=== PATIENT | male | born 1975 | race Caucasian/White ===

== ENCOUNTER 2017-10-15 10:42 | Emergency (ER) | payer BC, OTHER ==
[~2017-10-15] VITALS: Ht 175.3 cm; Wt 87.0 kg
[2017-10-15 11:00] VITALS: TEMP 36.7; Ht 175.3 cm; Wt 87.0 kg
[2017-10-15] MEDS ORDERED: MoRPHine SULFATE 10 MG/ML CARP/VIAL IM STA (11:24)
--- NOTE | 2017-10-15 11:48 | DIAGNOSTIC IMAGING REPORT ---
LUMBAR SPINE 5 VIEWS CLINICAL HISTORY: Low back pain of several days' duration. FINDINGS: 5 views of the lumbar spine are obtained. No prior studies are available for comparison at the time of dictation. The skeletal structures are well mineralized. There is no radiographic evidence of fracture or malalignment. Vertebral body height and alignment are maintained. The transverse and spinous processes are intact. Tiny anterior osteophytes are seen throughout. There is no evidence of spondylolysis. The intervertebral disc spaces are well-maintained. The visualized bony pelvis appears intact. There is a nonobstructed abdominal bowel gas pattern. IMPRESSION: No acute bony abnormality is seen involving the lumbosacral spine. Electronically signed by: Bubba De Souza M.D. 10/15/2017 11:46 AM Dictated Date/Time: 10/15/2017 11:46 AM
--- NOTE | 2017-10-15 11:54 | EMERGENCY ROOM VISIT NOTE ---
History First contact with patient: 11:13 Chief Complaint: BACK PAIN Stated Complaint: HURT BACK & HIP History of Present Illness The patient is a 42 year old male who presents to the Emergency Room with complaints of "her hip and back". The patient states that he was cutting firewood Sunday, and developed low back pain that yesterday progressed. He then states that it is sharp, and he could not get out of bed this morning secondary to the pain. He has tried heat, ibuprofen, Advil, and Aleve without relief. He denies any incontinence, numbness or tingling in genital region. He does have a history of umbilical hernia. There is no cauda equina symptoms. Review of Systems A complete 6-point Review of Systems was discussed with the patient, with pertinent positives and negatives listed in the History of Present Illness. All remaining Review of Systems questions can be considered negative unless otherwise specified. Past Medical/Surgical History No pertinent. Family History No pertinent. Social History Smoking Status: Never Smoker Patient lives locally. Current/Historical Medications Scheduled Cyclobenzaprine Hcl (Flexeril), 10 MG PO TID Prednisone (Prednisone), 0 PO DAILY Scheduled PRN Oxycodone Ir (Roxicodone Ir), 1-2 TAB PO Q4H PRN for Pain Miscellaneous Medications Acetaminophen Tab (Tylenol), 325 MG PO Ibuprofen (Advil), 200 MG PO Physical Exam Vital Signs Date Time Temp Pulse Resp B/P (MAP) Pulse Ox O2 Delivery O2 Flow Rate FiO2 10/15/17 13:24 64 18 126/85 95 10/15/17 13:00 69 18 96 Room Air 10/15/17 11:00 36.7 60 20 116/67 95 Room Air Physical Exam VITAL SIGNS - Vital signs and nursing notes were reviewed. GENERAL - []-year-old [] appearing [] stated age who is in no acute distress. Communicates well with provider and answers questions appropriately. SKIN - Without rashes. HEAD - NC/AT. EYES - PERRL with EOMI bilaterally. Sclera anicteric. Palpebral conjunctiva pink and moist with no injection noted. EARS - No deformities of external structures noted on gross examination bilaterally. No pain elicited with palpation of the tragus bilaterally. External auditory canals without discharge or otorrhea. Tympanic membranes pearly ashley without retraction or bulging. No fluid or purulent material visualized behind the TM. Handle of malleus, umbo, cone of light, pars tensa/ flaccid all easily visualized. NOSE - Midline and without cyanosis. No epistaxis or purulent drainage noted. Septum midline without deviation or septal hematoma noted. LUNGS - Chest wall symmetric without accessory muscle use, intercostals retractions, or central cyanosis. Normal vesicular breath sounds CTA B/L. No wheezes, rales, or rhonchi appreciated. CARDIAC - RRR with S1/S2. No murmur, rubs, or gallops appreciated. ABDOMEN - Abdominal contour normal without pulsations or visible masses. BS normoactive all four quadrants. No tenderness, palpable masses, hepatosplenomegaly, or ascites noted. MUSCULOSKEKTAL: Tenderness overlying L paraspinal musculature. EXTREMITIES - No clubbing or peripheral cyanosis. No pretibial edema present. Able to axillary load. +5/5 strength noted in UE/LE bilaterally. No neurovascular deficit. Medical Decision & Procedures ER Provider Diagnostic Interpretation: LUMBAR SPINE 5 VIEWS CLINICAL HISTORY: Low back pain of several days' duration. FINDINGS: 5 views of the lumbar spine are obtained. No prior studies are available for comparison at the time of dictation. The skeletal structures are well mineralized. There is no radiographic evidence of fracture or malalignment. Vertebral body height and alignment are maintained. The transverse and spinous processes are intact. Tiny anterior osteophytes are seen throughout. There is no evidence of spondylolysis. The intervertebral disc spaces are well-maintained. The visualized bony pelvis appears intact. There is a nonobstructed abdominal bowel gas pattern. IMPRESSION: No acute bony abnormality is seen involving the lumbosacral spine. Electronically signed by: Bubba De Souza M.D. 10/15/2017 11:46 AM Dictated Date/Time: 10/15/2017 11:46 AM Medications Administered Medications (Trade) Dose Ordered Sig/Althea Route Start Time Stop Time Status Last Admin Dose Admin Morphine Sulfate (MoRPHine SULFATE INJ) 10 mg NOW STAT IM 10/15/17 11:24 10/15/17 11:25 DC 10/15/17 11:29 10 MG Ketorolac Tromethamine (Toradol Inj) 60 mg NOW STAT IM 10/15/17 11:57 10/15/17 11:58 DC 10/15/17 12:03 60 MG Medical Decision Patient was seen and evaluated as above. He presents to us today with low back pain. He is a mandatory. I suspect this is likely a musculoskeletal strain, with some lumbar radiculopathy. No evidence of AAA, or cauda equina syndrome. X-ray was obtained. No acute process. I suspect that he is stable for outpatient management. He is given morphine and Toradol here. He was offered continued pain medication here in the emergency Department for preferred to go home. He'll be given a short course of oxycodone, as well as Flexeril and a steroid. He is to follow with her family doctor. No red flags the [place] drug monitoring system. He was educated upon management, educated upon worrisome symptoms in which to return, had questions prior to discharge, and was discharged home in good condition. In evaluation treatment this patient the following differential diagnoses were entertained: Fracture, dislocation, lumbar strain, herniated nucleus pulposus, herniated disc, among others. Impression Primary Impression: Strain of lumbar region Additional Impression: Lumbar radiculopathy Departure Information Dispostion Home / Self-Care Condition GOOD Prescriptions Prednisone (Prednisone) 20 Mg Tab 0 PO DAILY, #18 TAB 3 DAILY FOR 3 DAYS, THEN 2 DAILY FOR 3 DAYS, and THEN 1 DAILY FOR 3 DAYS. Prov: Estrada Courtney PA-C 10/15/17 Oxycodone Ir (Roxicodone Ir) 5 Mg Tab 1-2 TAB PO Q4H Y for Pain, #18 TAB For Initial Treatment. Prov: Estrada Courtney PA-C 10/15/17 Cyclobenzaprine Hcl (FLEXERIL) 10 Mg Tab 10 MG PO TID for 7 Days, #21 TAB . Prov: Estrada Courtney PA-C 10/15/17 Referrals Nick Reynaga M.D. (PCP) Patient Instructions My [facility] Additional Instructions You have been treated in the Emergency Department for Back Pain. You have received pain medicine in the emergency department which impairs your ability to operate a vehicle. It is illegal for you to drive after receiving these medicines. You have been prescribed Oxy IR to be used for pain control. This is a narcotic medication. You cannot drive or consume alcohol while on this medicine. This medicine should only be used for pain that cannot be controlled with over-the- counter pain medicines. You have been prescribed Flexeril (cyclobenzaprine) 1 tabs orally, three times per day. Do NOT exceed 30 mg (3 tabs) per day. Take your first dose at bedtime as it can make you drowsy. Always take all medications as prescribed. You have been prescribed Prednisone. This is an anti-inflammatory medicine to be used to help minimize your symptoms. You should take the COMPLETE course of the medication. For pain control, you can use the following [id number]-vlunxsq medicines (if >12 yo): - Regular strength (325mg/tab) Tylenol (acetaminophen) 2 tabs every 4-6 hours as needed. Do not exceed 12 tablets in a 24 hour period. Avoid taking more than 3 grams (3000 mg) of Tylenol per day. This includes any other sources of acetaminophen you may take on a regular basis. - Regular strength (200 mg/tab) Advil (ibuprofen) 1-2 tabs every 4-6 hours as needed. Do not exceed a dose of 3200 mg per day. If this is an acute injury, ice can be applied to the area of pain for the first 3 days to help decrease pain and inflammation. After the first 3 days, a heating pad can be used over the area for continued soothing relief. You should schedule a follow-up appointment in 2-3 days with your Primary Care Provider for further evaluation and treatment of your back pain. Return to the Emergency Department if your current symptoms worsen despite treatment course outlined above, or if you develop any of the following symptoms : intractable pain despite aforementioned treatment course, loss of control of your bowel or bladder, numbness or tingling in your groin, or development of a fever. Problem Qualifiers
[2017-10-15] MEDS ORDERED: KETOROLAC TROMETHAMINE 60 MG/2 ML VIAL IM STA (11:57)
[2017-10-15] MEDS ORDERED: IBUP-1050 PO (12:24)
[2017-10-15] MEDS ORDERED: ACET325T96 PO (12:24)
[2017-10-15] MEDS ORDERED: PRED20TA PO ×2 (13:11→16:20)
[2017-10-15] MEDS ORDERED: CYCL10TA6 PO ×2 (13:11→16:20)
[2017-10-15] MEDS ORDERED: OXYC1TAB3 PO ×2 (13:11→16:20)
[2017-10-15 13:24] VITALS: BP 126/85; PULSE 64; O2SAT 95
--- NOTE | 2017-10-15 16:28 | Pharmacy Progress Note ---
ED Pharmacist Progress Note Date of Service: Oct 15, 2017. Patient's Veronica called stating the 3 Rx's given today were sent to the wrong pharmacy. I reviewed the e-prescriptions and they were sent to the [facility] in [place] [facility] of [facility]. Notified Estrada, who sent new e-prescriptions to [facility]. I called the [facility] and spoke to pharmacist Essie and asked that Rx's be cancelled there as they were sent to the wrong store. She stated she placed the Rx's on hold earlier today because she realized the patient's address was not local. She stated the Rx's could be accessed from any [facility] store. I stated that new Rx's had been sent to the [place] store and that the prior Rx's need cancelled so that two Rx's would not be available. Essie stated she would cancel them now.
== END 2017-10-15 13:26 | disposition home or self-care (01) ==
LOC: C.EDB 10:43 → C.EDD 13:26
DX: M54.5 Low back pain (principal); M25.559 Pain in unspecified hip; X50.0XXA Overexertion from strenuous movement or load, initial encounter